=== PATIENT | male | born 1970 | race Hispanic/Latino ===

== ENCOUNTER 2022-03-04 17:44 | Observation (INO) | payer OTHER ==
[2022-03-04 19:00] LABS: #Eosinphils 0.2 10x3/uL (0.0-0.5); #Monocytes 1.1 10x3/uL (0.0-1.1); #Neutrophils 6.3 10x3/uL (1.5-8.4); %Basophils 0.4 % (0.0-2.0); %Eosinophils 2.1 % (0.0-6.0); %Lymphocytes 25.8 % (18.0-47.0); %Monocytes 10.3 % (0.0-10.0); Hemoglobin 15.8 g/dL (13.5-17.5); Mean Corpuscular Hemoglobin 34.4 pg (27.0-33.0); Mean Corpuscular Volume 98.5 fl (81.2-95.1); Platelet Count 179 10x3/uL (150-450); RBC Distribution Width 12.6 % (11.5-14.5); Red Blood Cell (RBC) Count 4.59 10x6/uL (4.32-5.72); White Blood Cell (WBC) Count 10.3 10x3/uL (3.5-10.5)
[2022-03-04 19:19] LABS: INR-International Normal Ratio 0.9; PTT 24.8 sec (22.0-33.0); Prothrombin Time 9.6 sec (9.5-12.1)
[2022-03-04 19:31] LABS: ALT (SGPT) 32 U/L (8-55); AST (SGOT) 24 U/L (5-34); Albumin 4.2 g/dL (3.5-5.0); Alkaline Phosphatase 121 U/L (40-110); Anion Gap 14 mmol/L (10-20); BUN (Urea Nitrogen) 12 mg/dL (8.9-20.6); Bilirubin, Total 0.4 mg/dL (0.2-1.2); CK (CPK) 176 U/L (30-200); Calc. Creatinine Clearance 0 mL/min (70-130); Calcium 9.4 mg/dL (7.8-10.44); Carbon Dioxide 27 mmol/L (22-29); Chloride 101 mmol/L (98-107); Globulin 3.4 g/dL (2.4-3.5); Glucose 93 mg/dL (70-105); Potassium 3.7 mmol/L (3.5-5.1); Protein, Total 7.6 g/dL (6.0-8.3); Sodium 138 mmol/L (136-145)
[2022-03-04] MEDS ORDERED: Aspirin 325 MG TAB ONE (20:25)
[2022-03-04 22:30] LABS: Bilirubin Neg (Negative); Blood, Urine Negative (Negative); Glucose, Urine (Dipstick) Normal (Negative); Ketone, Urine Negative (Negative); Leukocyte 25 (Negative); Nitrite Negative (Negative); Protein, Urine (Dipstick) 30 mg/dl (Neg-Trace); Specific Gravity, Urine 1.025 (1.002-1.036)
[2022-03-04 22:31] LABS: Clarity Slightly Cloudy (Clear)
[2022-03-04 22:38] LABS: Bacteria/HPF 1+ HPF (None Seen); Calcium Oxalate Crystals 1+ HPF (None Seen); Mucous/LPF 1+ LPF (<2+); Sperm/HPF 1+ HPF (None Seen)
[2022-03-04 23:23] LABS: SARS-CoV-2 NAA Rapid Test Not Detected (NotDetected)
[2022-03-04 23:36] VITALS: BMI 51.5
[2022-03-05 04:27] LABS: #Eosinphils 0.3 10x3/uL (0.0-0.5); #Neutrophils 5.7 10x3/uL (1.5-8.4); %Basophils 0.4 % (0.0-2.0); %Lymphocytes 22.5 % (18.0-47.0); %Monocytes 11.1 % (0.0-10.0); %Neutrophils 62.5 % (40.0-75.0); Hemoglobin 14.6 g/dL (13.5-17.5); Mean Corpuscular HGB CONC 33.6 g/dL (32.0-36.0); Mean Corpuscular Volume 100.9 fl (81.2-95.1); Mean Platelet Volume 10.7 fl (7.4-10.4); Platelet Count 190 10x3/uL (150-450); RBC Distribution Width 12.9 % (11.5-14.5); White Blood Cell (WBC) Count 9.1 10x3/uL (3.5-10.5)
[2022-03-05 05:28] LABS: Anion Gap 14 mmol/L (10-20); BUN (Urea Nitrogen) 13 mg/dL (8.9-20.6); Calc. Creatinine Clearance 213 mL/min (70-130); Calcium 8.5 mg/dL (7.8-10.44); Carbon Dioxide 30 mmol/L (22-29); Cardiac Risk 4.9 (Less than 4.5); Chloride 102 mmol/L (98-107); Cholesterol 205 mg/dl (< 200 Desired); Glucose 99 mg/dL (70-105); HDL Cholesterol 42 mg/dL (>60 Neg Risk); LDL Cholesterol, Calculated 126 mg/dL; Potassium 3.9 mmol/L (3.5-5.1); Sodium 142 mmol/L (136-145); Triglycerides 185 mg/dL (Less than 150)
[2022-03-05 07:18] LABS: Magnesium 2.2 mg/dL (1.6-2.6); Uric Acid 7.4 mg/dL (3.5-7.2)
[2022-03-05 07:35] LABS: Syphilis Antibody Nonreactive (Nonreactive); Syphilis Antibody Index 0.04 S/CO (<1.00 Non-Reactive)
[2022-03-05] MEDS ORDERED: Aspirin 81 mg Enteric Coated Tablet PO SCH (09:00)
[2022-03-05] MEDS ORDERED: Enoxaparin Sodium 40 MG/0.4 ML SYRINGE SC SCH (09:00)
[2022-03-05] MEDS ORDERED: Magnevist 469MG/ML 20 ML VIAL ONE (12:32)
[2022-03-05 17:00] VITALS: BP 128/64; TEMP 98
[2022-03-05 18:38] LABS: Hemoglobin A1c 5.2 % (4.0-6.0)
[2022-03-05] MEDS ORDERED: Atorvastatin Calcium 40 MG TAB PO SCH (21:00)
[2022-03-06] MEDS ORDERED: Clopidogrel Bisulfate 75 MG TAB PO SCH (09:00)
== END 2022-03-05 19:00 | disposition home or self-care (01) ==
LOC: CSHERS 17:44 → CSHTELE 23:09
PROVIDERS: ADMIT Family Medicine; ATTEND Physician Assistant Medical
DX: G45.9 Transient cerebral ischemic attack, unspecified (principal); R29.898 Other symptoms and signs involving the musculoskeletal system; E79.0 Hyperuricemia without signs of inflammatory arthritis and tophaceous disease; E78.5 Hyperlipidemia, unspecified; E66.01 Morbid (severe) obesity due to excess calories; G47.33 Obstructive sleep apnea (adult) (pediatric); K42.9 Umbilical hernia without obstruction or gangrene; Z87.891 Personal history of nicotine dependence
CPT/HCPCS: 36415; 70450; 70544; 70549; 70551; 71045; 80048; 80053; 80061; 81003; 81015; 82550; 83036; 83735; 84443; 84484; 84550; 85025; 85610; 85652; 85730; 86780; 93005; 93306; 93880; 96372; A9579; G0378; J1650; U0002